=== PATIENT | female | born 1950 | race Caucasian/White ===

== ENCOUNTER 2017-08-07 03:43 | Inpatient (IN) | payer MEDICARE ==
[~2017-08-07] VITALS: Ht 165.1 cm; Wt 94.4 kg
[2017-08-07] VITALS (7 sets, daily range): BP systolic 101–120; BP diastolic 55–77; PULSE 54–75; RESP 16–18; TEMP 95.4–98.1; O2SAT 92–97
[~2017-08-07 03:43] MED LIST: ATEN1TAB74; BENI40TA30; OXYC-360; PREV30CA36; RAMI10CA; VYTO10TA32
--- NOTE | 2017-08-07 04:26 | PD ---
HPI Chief Complaint: Fall Time Seen by Provider: 04:12 Travel History International Travel<30 days: No Contact w/Intl Traveler<30days: No Traveled to known affect area: No History of Present Illness HPI Patient is a 67 year old female who presents to ER with c/o of headache and neck pain after she fell out of bed today. Reports that "i must have turned and when I did I fell out of bed." Reports that her head hit on the dresser and now she has pains to the back of her head and neck. Denies loc. Reports that she is not currently on any anticoagulants at this time. Patient with no back pain. Denies chest pain/sob. PFSH Past Medical History Medical History: Denies Significant Hx Past Surgical History Surgical History: No Previous Surgery Social History Alcohol Use: No Tobacco Use: No Substance Use: No Allergies-Medications (Allergen,Severity, Reaction): Coded Allergies: aspirin (Unverified Allergy, Mild, GASTRIC UPSET, 08/07/17) Reported Meds & Prescriptions Reported Meds & Active Scripts Active Walker with Front Wheels (Device) 1 Mis Mis Ea .ROUTE DIRECTED Review of Systems General / Constitutional: No: Fever Eyes: No: Visual changes HENT: Positive: Neck Pain, No: Headaches Cardiovascular: No: Chest Pain or Discomfort Respiratory: No: Shortness of Breath Gastrointestinal: No: Abdominal Pain Genitourinary: No: Dysuria Musculoskeletal: No: Pain Skin: No Rash Neurologic: Positive: Headache, No: Weakness Psychiatric: No: Depression Endocrine: No: Polydipsia Hematologic/Lymphatic: No: Easy Bruising Physical Exam Narrative GENERAL: NAD SKIN: Focused skin assessment warm/dry. HEAD: Atraumatic. Normocephalic. EYES: Pupils equal and round. No scleral icterus. No injection or drainage. ENT: No nasal bleeding or discharge. Mucous membranes pink and moist. NECK: Trachea midline. No JVD. Patient with c-collar in place CARDIOVASCULAR: Regular rate and rhythm. No murmur appreciated. RESPIRATORY: No accessory muscle use. Clear to auscultation. Breath sounds equal bilaterally. GASTROINTESTINAL: Abdomen soft, non-tender, nondistended. Hepatic and splenic margins not palpable. MUSCULOSKELETAL: No obvious deformities. No clubbing. No cyanosis. No edema. NEUROLOGICAL: Awake and alert. No obvious cranial nerve deficits. Motor grossly within normal limits. Normal speech. PSYCHIATRIC: Appropriate mood and affect; insight and judgment normal. Data Data Last Documented VS Vital Signs Date Time Temp Pulse Resp B/P (MAP) Pulse Ox O2 Delivery O2 Flow Rate FiO2 08/07/17 03:51 98.1 54 18 101/55 (70) [address] Brain W/O Iv Contrast(Rout) (08/07/17 04:18) Ct Cerv Spine W/O Contrast (08/07/17 04:18) Acetaminophen (Tylenol) (08/07/17 04:30) Basic Metabolic Panel (Bmp) (08/07/17 05:05) Complete Blood Count With Diff (08/07/17 05:05) Prothrombin Time / Inr (Pt) (08/07/17 05:05) Act Partial Throm Time (Ptt) (08/07/17 05:05) Iv Access Insert/Monitor (08/07/17 05:05) Ecg Monitoring (08/07/17 05:05) Oximetry (08/07/17 05:05) NPO (08/07/17 05:05) Sodium Chloride 0.9% Flush (Ns Flush) (08/07/17 05:15) Drug Screen, Random Urine (08/07/17 05:06) Consult Neurosurgery (08/07/17 ) Chest, Single Ap (08/07/17 05:24) (Hub Use Only)Inp Phy Cons/Ref (08/07/17 ) Admit Order (Ed Use Only) (08/07/17 05:29) Alcohol (Ethanol) (08/07/17 05:05) MDM Medical Decision Making Medical Screen Exam Complete: Yes Emergency Medical Condition: Yes Medical Record Reviewed: Yes Interpretation(s) Vital Signs Date Time Temp Pulse Resp B/P (MAP) Pulse Ox O2 Delivery O2 Flow Rate FiO2 08/07/17 03:51 98.1 54 18 101/55 (70) 96 Differential Diagnosis ich, cervical spine fx Narrative Course Patient was brought to ct for ct of head and neck CT of head: neg for intracranial hemorrhage CT of neck: acute nondisplaced type II odontoid fracture Patient with no neurovascular compromise at this time. Call made for admission. Consult was placed to neurosurgery Diagnosis Primary Impression: Odontoid fracture with type II morphology Qualified Codes: S12.112A - Nondisplaced type ii dens fracture, initial encounter for closed fracture Admitting Information Admitting Physician Requests: Admit Scripts Walker with Front Wheels (Walker with Front Wheels) 1 Mis Mis EA .ROUTE DIRECTED for ambulation, #1 0 Refills Prov: Elicia Fontanez MD 08/07/17 Viri Ramos DO Aug 07, 2017 04:26
[2017-08-07] MEDS ORDERED: ACETAMINOPHEN 500 MG CPLT PO ONE (04:30)
--- NOTE | 2017-08-07 04:51 | RADRPT ---
EXAM DATE/TIME: 08/07/2017 04:34 [facility] COMPARISON: No previous studies available for comparison. INDICATIONS : Trauma, fell and hit head on dresser. RADIATION DOSE: 36.30 CTDIvol (mGy) MEDICAL HISTORY : None SURGICAL HISTORY : None. ENCOUNTER: Initial ACUITY: 1 day PAIN SCALE: 10/10 LOCATION: cranial TECHNIQUE: Multiple contiguous axial images were obtained of the head. Using automated exposure control and adj ustment of the mA and/or kV according to patient size, radiation dose was kept as low as reasonably a chievable to obtain optimal diagnostic quality images. DICOM format image data is available electro nically for review and comparison. FINDINGS: CEREBRUM: The ventricles are normal for age. No evidence of midline shift, mass lesion, hemorrhage or acute in farction. No extra-axial fluid collections are seen. POSTERIOR FOSSA: The cerebellum and brainstem are intact. The 4th ventricle is midline. The cerebellopontine angle i s unremarkable. EXTRACRANIAL: The visualized portion of the orbits is intact. SKULL: The calvaria is intact. No evidence of skull fracture. CONCLUSION: Negative noncontrast head CT. Agustin Escoto MD on August 07, 2017 at 4:49 Board Certified Radiologist. This report was verified electronically.
--- NOTE | 2017-08-07 04:55 | RADRPT ---
EXAM DATE/TIME: 08/07/2017 04:34 [facility] COMPARISON: No previous studies available for comparison. INDICATIONS : Trauma, fell and hit head on dresser. RADIATION DOSE: 22.78 CTDIvol (mGy) MEDICAL HISTORY : None SURGICAL HISTORY : None. ENCOUNTER: Initial ACUITY: 1 day PAIN SCALE: 10/10 LOCATION: neck TECHNIQUE: Volumetric scanning of the cervical spine was performed. Multiplanar reconstructions in the sagittal, coronal and oblique axial planes were performed. Using automated exposure control and adjustment o f the mA and/or kV according to patient size, radiation dose was kept as low as reasonably achievable to obtain optimal diagnostic quality images. DICOM format image data is available electronically f or review and comparison. FINDINGS: There is a nondisplaced fracture of the base of the odontoid. No subluxation. C1 ring is discontinuou s posteriorly, appears developmental. No other fractures of the cervical spine are demonstrated. There is multilevel disc space narrowing w ith uncovertebral and facet osteoarthritis, severe at C5/C6 and C6-C7, moderate at C4/C5. CONCLUSION: Acute, nondisplaced type II odontoid fracture. Agustin Escoto MD on August 07, 2017 at 4:51 Board Certified Radiologist. This report was verified electronically.
[2017-08-07] MEDS ORDERED: SODIUM CHLORIDE 0.9% FLUSH 10 ML FLUSH IV FLUSH PRN ×2 (05:15→05:30)
[2017-08-07] MEDS ORDERED: SENNOSIDES 8.6 MG TAB PO PRN (05:30)
[2017-08-07] MEDS ORDERED: NALOXONE HCL 0.4 MG/ML AMP IV PUSH PRN ×2 (05:30→06:00)
[2017-08-07] MEDS ORDERED: MAGNESIUM HYDROXIDE SUSP 30 ML CUP PO PRN (05:30)
[2017-08-07] MEDS ORDERED: BISACODYL 10 MG SUPP RECTAL PRN (05:30)
[2017-08-07] MEDS ORDERED: SODIUM CHLOR 0.45% 1000 ML INJ 1,000 ML IV SCH (05:30)
[2017-08-07] MEDS ORDERED: LACTULOSE SYRUP 20 GM/30 ML CUP PO PRN (05:30)
--- NOTE | 2017-08-07 05:45 | RADRPT ---
EXAM DATE/TIME: 08/07/2017 05:33 [facility] COMPARISON: No previous studies available for comparison. INDICATIONS : Pt fell and hit head on dresser, c/o head and neck pain MEDICAL HISTORY : None. SURGICAL HISTORY : None. ENCOUNTER: Initial ACUITY: 1 day PAIN SCORE: 9/10 LOCATION: Bilateral chest FINDINGS: There is mild left base atelectasis. Right lung is clear. No fracture seen. No pleural effusion or pn eumothorax. Cardiomediastinal silhouette within normal limits. CONCLUSION: Trace left base atelectasis. Agustin Escoto MD on August 07, 2017 at 5:43 Board Certified Radiologist. This report was verified electronically.
[2017-08-07] MEDS ORDERED: MORPHINE SULFATE 4 MG/ML INJ IV PUSH PRN ×2 (06:00)
--- NOTE | 2017-08-07 06:00 | HHI.HP ---
HPI Service [facility] Primary Care Physician Collin Oh, Admission Diagnosis Type 2 Odontoid fracture Diagnoses: Travel History International Travel<30 Days: No Contact w/Intl Traveler <30 Da: No Traveled to Known Affected Are: No History of Present Illness 67-year-old female with history of hypertension, GERD, reportedly fell out of bed around 2:30 AM, hitting her left mamie on dresser. She says she was awake at the time, but misjudged the edge of the bed. She denies any recent medication changes. She reports previously feeling fine. Denies any chest pain , shortness of breath, cough, cold, constipation, diarrhea, dysuria. He history of exertional chest pain. Most recent medication change was addition of gabapentin 600 mg at night which was admitted about 6 months ago. Patient reports constant sharp posterior neck pain radiating to her right occiput. Review of Systems Except as stated in HPI: all other systems reviewed are Neg Past Family Social History Past Medical History Hypertension GERD Hyperlipidemia Polycythemia Breast cancer resection Colon cancer resection. Past Surgical History Lumpectomy for breast cancer. Partial colon resection for colon cancer. Patient received radiation, reportedly no chemotherapy. Reported Medications Reported Meds & Active Scripts Active Reported Percocet (Oxycodone/Acetaminophen) 5 Mg/325 Mg Tab Vytorin 10/20 (Ezetimibe/Simvastatin) Tab Tenormin (Atenolol) 50 Mg Tab Prevacid (Lansoprazole) 30 Mg Capcr Benicar (Olmesartan) 40 Mg Tab Altace (Ramipril) 10 Mg Cap Allergies: Coded Allergies: aspirin (Unverified Allergy, Mild, GASTRIC UPSET, 08/07/17) Family History Mother from complications from flu shot. Father from alcoholic cirrhosis. Social History Nonsmoker. Nondrinker. Denies illicit drugs. Lives with . Physical Exam Vital Signs Vital Signs Date Time Temp Pulse Resp B/P (MAP) Pulse Ox O2 Delivery O2 Flow Rate FiO2 08/07/17 03:51 98.1 54 18 101/55 (70) 96 Physical Exam GENERAL: This is a well-nourished, well-developed patient, in pain.. Alert and oriented 3. SKIN: No rashes, ecchymoses or lesions. Cool and dry. HEAD: Atraumatic. Normocephalic. No temporal or scalp tenderness. EYES: Pupils equal round and reactive. Extraocular motions intact. No scleral icterus. No injection or drainage. ENT: Nose without bleeding, purulent drainage or septal hematoma. Throat without erythema, tonsillar hypertrophy or exudate. Uvula midline. Airway patent. NECK: Trachea midline. No JVD or lymphadenopathy. Patient in cervical collar. CARDIOVASCULAR: Regular rate and rhythm without murmurs, gallops, or rubs. RESPIRATORY: Clear to auscultation. Breath sounds equal bilaterally. No wheezes , rales, or rhonchi. GASTROINTESTINAL: Abdomen soft, non-tender, nondistended. No hepato-splenomegaly , or palpable masses. No guarding. MUSCULOSKELETAL: Extremities without clubbing, cyanosis, or edema. No joint tenderness, effusion, or edema noted. No calf tenderness. Negative Homans sign bilaterally. NEUROLOGICAL: Awake and alert. Cranial nerves II through XII intact. Motor and sensory grossly within normal limits. Five out of 5 muscle strength in all muscle groups. Normal speech. Caprini VTE Risk Assessment Caprini VTE Risk Assessment: Mod/High Risk (score >= 2) Caprini Risk Assessment Model Point Value = 1 Point Value = 2 Point Value = 3 Point Value = 5 Age 41-60 Minor surgery BMI > 25 kg/m2 Swollen legs Varicose veins or History of unexplained or recurrent spontaneous Oral contraceptives or hormone replacement Sepsis (< 1 month) Serious lung disease, including pneumonia (< 1 month) Abnormal pulmonary function Acute myocardial infarction Congestive heart failure (< 1 month) History of inflammatory bowel disease Medical patient at bed rest Age 61-74 Arthroscopic surgery Major open surgery (> 45 min) Laparoscopic surgery (> 45 min) Malignancy Confined to bed (> 72 hours) Immobilizing plaster cast Central venous access Age >= 75 History of VTE Family history of VTE Factor V Leiden Prothrombin 55432A Lupus anticoagulant Anticardiolipin antibodies Elevated serum homocysteine Heparin-induced thrombocytopenia Other congenital or acquired thrombophilia Stroke (< 1 month) Elective arthroplasty Hip, pelvis, or leg fracture Acute spinal cord injury (< 1 month) Prophylaxis Regimen Total Risk Factor Score Risk Level Prophylaxis Regimen 0-1 Low Early ambulation 2 Moderate Order ONE of the following: *Sequential Compression Device (SCD) *Heparin 5000 units SQ BID 3-4 Higher Order ONE of the following medications: *Heparin 5000 units SQ TID *Enoxaparin/Lovenox 40 mg SQ daily (WT < 150 kg, CrCl > 30 mL/min) *Enoxaparin/Lovenox 30 mg SQ daily (WT < 150 kg, CrCl > 10-29 mL/min) *Enoxaparin/Lovenox 30 mg SQ BID (WT < 150 kg, CrCl > 30 mL/min) AND/OR *Sequential Compression Device (SCD) 5 or more Highest Order ONE of the following medications: *Heparin 5000 units SQ TID (Preferred with Epidurals) *Enoxaparin/Lovenox 40 mg SQ daily (WT < 150 kg, CrCl > 30 mL/min) *Enoxaparin/Lovenox 30 mg SQ daily (WT < 150 kg, CrCl > 10-29 mL/min) *Enoxaparin/Lovenox 30 mg SQ BID (WT < 150 kg, CrCl > 30 mL/min) AND *Sequential Compression Device (SCD) Assessment and Plan Assessment and Plan //Acute nondisplaced type II odontoid fracture -From fall out of bed. She was alert at the time of fall, reported to have missed judged the edge of bed. Could be related to gabapentin. She denies illicit drugs. Drug screen is pending. -CT cervical spine as above. -Narcotics for pain control -Consult neurosurgery. Pending. //Hypertension. Chronic. - Blood pressure relatively low 101/55 on admission. -Nursing to verify home medications. /Hyperlipidemia. Chronic. Pending verification of home medications. //GERD. Chronic. Continue on PPI. //Peripheral neuropathy -Patient takes gabapentin 600 mg by mouth nightly. -Decrease dose to 300 mg at bedtime while in the hospital. //History of polycythemia. CBC ordered and pending. //Prophylaxis. SCDs. antiCoagulation As per surgical service. Discussed Condition With Patient, ED physician, at bedside. Physician Certification 2 Midnight Certification Type: Admission for Inpatient Services Order for Inpatient Services The services are ordered in accordance with Medicare regulations or non- Medicare payer requirements, as applicable. In the case of services not specified as inpatient-only, they are appropriately provided as inpatient services in accordance with the 2-midnight benchmark. Estimated LOS (days): 2 days is the estimated time the patient will need to remain in the hospital, assuming treatment plan goals are met and no additional complications. Post-Hospital Plan: Not yet determined Hector Figueroa MD Aug 07, 2017 06:00
[2017-08-07 06:23] LABS: AUTOMATED NEUTROPHIL # 5.7 TH/MM3 (1.8-7.7); BASOPHIL % 0.4 % (0.0-2.0); EOSINOPHIL % 0.6 % (0.0-4.0); HEMATOCRIT 48.8 % (35.0-46.0); HEMOGLOBIN 16.9 GM/DL (11.6-15.3); LYMPH % 22.7 % (9.0-44.0); LYMPHOCYTE # 1.9 TH/MM3 (1.0-4.8); MEAN CELL VOLUME 89.3 FL (80.0-100.0); MEAN CORPUSCULAR HEMOGLOBIN 30.8 PG (27.0-34.0); MEAN CORPUSCULAR HGB CONC 34.5 % (32.0-36.0); MEAN PLATELET VOLUME 10.3 FL (7.0-11.0); MONO % 6.5 % (0.0-8.0); MONOCYTE # 0.5 TH/MM3 (0-0.9); NEUT % 69.8 % (16.0-70.0); PLATELET COUNT 153 TH/MM3 (150-450); RED BLOOD COUNT 5.46 MIL/MM3 (4.00-5.30); RED CELL DISTRIBUTION WIDTH 13.9 % (11.6-17.2); WHITE BLOOD COUNT 8.2 TH/MM3 (4.0-11.0)
[2017-08-07] MEDS: MORPHINE SULFATE 4 MG/ML INJ IV PUSH PRN ×4 (06:58→23:35)
[2017-08-07 07:10] LABS: BLOOD UREA NITROGEN 23 MG/DL (7-18); CALCIUM 9.8 MG/DL (8.5-10.1); CHLORIDE 98 MEQ/L (98-107); GLOMERULAR FILTRATION RATE 72 ML/MIN (>89); GLUCOSE,RANDOM 133 MG/DL (74-106); SODIUM (NA) 136 MEQ/L (136-145)
[2017-08-07 07:20] LABS: PROTHROMBIN TIME - PATIENT 10.9 SEC (9.8-11.6)
[2017-08-07] MEDS: POTASSIUM CHLOR 10 MEQ PREMIX 100 ML IV SCH ×3 (08:29→11:28)
[2017-08-07] MEDS: SODIUM CHLORIDE 0.9% FLUSH 10 ML FLUSH IV FLUSH SCH ×2 (08:30→19:33)
[2017-08-07] MEDS: PANTOPRAZOLE SOD 20 MG DELAYED RELEASE TAB PO SCH (08:30)
[2017-08-07] MEDS: D5-NS + KCL 20 MEQ INJ 1,000 ML IV SCH ×2 (08:30→18:01)
--- NOTE | 2017-08-07 13:34 | PD.CONS ---
History of Present Illness Service Neurosurgery Consult Requested By Medicine service Reason for Consult C2 fracture Primary Care Physician Collin Oh, Diagnoses: History of Present Illness The patient is a pleasant 67-year-old female who states that she got out of bed early this morning, and fell. When asked why she fell, she states that she thinks that she passed out. No complaint chest pain or shortness of breath. No significant headache. No dizziness or vertigo. No blurred vision or diplopia. Denies any seizure activity. She complains of mild to moderate neck pain. No pain weakness numbness paresthesias in the extremities or loss of bowel or bladder function. She does complain of pain radiating in back of the right ear up to the right posterior occipital region. Review of Systems Constitutional: DENIES: Fatigue, Fever Eyes: DENIES: Blurred vision, Diplopia Ears, nose, mouth, throat: DENIES: Hearing loss, Vertigo Respiratory: DENIES: Shortness of breath Cardiovascular: DENIES: Chest pain, Palpitations Gastrointestinal: DENIES: Abdominal pain, Nausea, Vomiting Musculoskeletal: COMPLAINS OF: Muscle aches, Neck pain, DENIES: Joint pain, Back pain Hematologic/lymphatic: DENIES: Bruising Neurologic: COMPLAINS OF: Headache, DENIES: Abnormal gait Psychiatric: DENIES: Confusion Past Family Social History Allergies: Coded Allergies: aspirin (Unverified Allergy, Mild, GASTRIC UPSET, 08/07/17) Past Medical History Hypertension Hyperlipidemia History of breast and colon cancer GERD Past Surgical History Breast cancer resection Colon cancer resection Reported Medications Reported Meds & Active Scripts Active Active Prescriptions or Reported Medications Unobtainable Family History No history of cardiopulmonary disease, diabetes in the family Social History Does not smoke cigarettes or drink alcohol. Physical Exam Vital Signs Vital Signs Date Time Temp Pulse Resp B/P (MAP) Pulse Ox O2 Delivery O2 Flow Rate FiO2 08/07/17 12:00 96.4 68 16 105/63 (77) 92 08/07/17 08:00 95.6 66 16 112/71 (85) 92 08/07/17 06:37 08/07/17 05:58 54 18 102/56 (71) 94 Room Air 08/07/17 05:51 18 96 Room Air 08/07/17 03:51 98.1 54 18 101/55 (70) 96 Physical Exam GENERAL: This is a well-nourished, well-developed patient, no apparent distress. SKIN: No abrasions, contusion, rash noted. Skin warm and dry. HEAD: Atraumatic. Normocephalic. Mild tenderness left frontotemporal region EYES: Sclerae are clear and nonicteric ENT: No facial edema or ecchymosis. No periorbital edema. No CSF otorrhea or rhinorrhea. No palpable facial fracture or deformity. NECK: Trachea midline. Mild upper cervical spine tenderness. Mild tenderness right posterior auricular region CARDIOVASCULAR: Regular rate and rhythm without murmurs, gallops, or rubs. RESPIRATORY: Clear to auscultation. Breath sounds equal bilaterally. No wheezes , rales, or rhonchi. GASTROINTESTINAL: Abdomen soft, non-tender, nondistended. No hepato-splenomegaly , or palpable masses. No guarding. MUSCULOSKELETAL: Extremities without cyanosis, or edema. No joint tenderness, or edema noted. No calf tenderness. Dorsalis pedis pulses 2+ bilateral NEUROLOGICAL: Awake and alert Oriented X 3 Speech is clear Conversant and appropriate Follow simple commands well Answers questions appropriately Reasonable judgment and insight Recent and remote memory are intact No evidence of anxiety or depression Pupils are equal and reactive to accommodation. Extra-ocular movements, visual sinclair to confrontation, facial sensorimotor, tongue, palate, sternocleidomastoid testing, hearing to finger rub testing, and bilateral shoulder shrug are all intact. Sensation is intact to light touch in all extremities Strength normal major flexion and extension groups all extremities Austyn's absent bilaterally No ankle clonus Plantar responses absent bilateral Fine motor movements intact upper extremities Laboratory Laboratory Tests Test 08/07/17 05:55 White Blood Count 8.2 Red Blood Count 5.46 Hemoglobin 16.9 Hematocrit 48.8 Mean Corpuscular Volume 89.3 Mean Corpuscular Hemoglobin 30.8 Mean Corpuscular Hemoglobin Concent 34.5 Red Cell Distribution Width 13.9 Platelet Count 153 Mean Platelet Volume 10.3 Neutrophils (%) (Auto) 69.8 Lymphocytes (%) (Auto) 22.7 Monocytes (%) (Auto) 6.5 Eosinophils (%) (Auto) 0.6 Basophils (%) (Auto) 0.4 Neutrophils # (Auto) 5.7 Lymphocytes # (Auto) 1.9 Monocytes # (Auto) 0.5 Eosinophils # (Auto) 0.0 Basophils # (Auto) 0.0 CBC Comment DIFF FINAL Differential Comment Prothrombin Time 10.9 Prothromb Time International Ratio 1.0 Activated Partial Thromboplast Time 26.8 Blood Urea Nitrogen 23 Creatinine 0.80 Random Glucose 133 Calcium Level 9.8 Sodium Level 136 Potassium Level 2.6 Chloride Level 98 Carbon Dioxide Level 29.0 Anion Gap 9 Estimat Glomerular Filtration Rate 72 Ethyl Alcohol Level LESS THAN 3 Result Diagram: 08/07/17 0555 08/07/17 0555 Imaging 08/07/17 CT scan of the head and cervical spine images have been reviewed. The study reveals a acute appearing nondisplaced type II odontoid fracture. There appears to be a spontaneous C3-4 fusion. There is a small amount of osteophyte formation along the left C1-2 lateral mass , possible early stages of spontaneous fusion. Chest X-Ray 08/07/17 0524 Signed Impressions: Service Date/Time: Monday, August 07, 2017 05:33 - CONCLUSION: Trace left base atelectasis. Agsutin Escoto MD Head CT 08/07/17 0418 Signed Impressions: Service Date/Time: Monday, August 07, 2017 04:34 - CONCLUSION: Negative noncontrast head CT. Agustin Escoto MD Cervical Spine CT 08/07/17 0418 Signed Impressions: Service Date/Time: Monday, August 07, 2017 04:34 - CONCLUSION: Acute, nondisplaced type II odontoid fracture. Agustin Escoto MD Assessment and Plan Assessment and Plan Impression: 1. Nondisplaced type II odontoid fracture. No significant distraction or subluxation. There is a small amount of osteophyte formation lateral to the left C1-2 lateral mass which may indicate relative stability at the C1-2 level. Spontaneous C2-3 fusion Plan: Findings were discussed with the patient. Treatment options including external [place] brace, halo brace, or some surgical intervention for C2 odontoid screw fixation have all been discussed along with prognosis, pros and cons of each. Since the bone fragments are well apposed, with some osteophyte formation along the lateral left C1-2 lateral mass indicating potential for greater stability, it is recommended she continue initial conservative treatment with a [place] J cervical collar. Follow-up cervical spine x-ray will be accomplished in approximately 1 week to ensure continued stability and proper alignment. As long as he serial x-rays reveal proper healing of the fracture site and conservative treatment will be continued. If there is evidence of subluxation and nonunion, then odontoid screw placement can be considered until approximately 1 month following the initial injury. I have explained all the above in detail to the patient. She appears to understand all the above and agrees with this plan. It is questionable whether she tripped and fell or had a syncopal type episode earlier this morning. The need for significant workup will be deferred to medicine service. She otherwise will mobilize out of bed with the [place] collar and as long as she is ambulating well independently, may discharge home with neurosurgery follow- up in approximately 1 week with AP open mouth odontoid view and lateral cervical spine x-ray. Serjio Jauregui MD Aug 07, 2017 13:34
[2017-08-07] MEDS ORDERED: WALKER WHEELS/F1 MIS (16:20)
--- NOTE | 2017-08-07 16:22 | HHI.FF ---
Face to Face Verification Diagnosis: (1) Odontoid fracture with type II morphology Physical Therapy Order: Evaluate and Treat, Improve ambulation, Strength and gait training I have seen patient Lindsay Garcia on 08/07/17. My clinical findings support the need for the requested home health care services because: High risk of falls I certify that my clinical findings support that this patient is homebound because: Unsteady gait/balance Elicia Fontanez MD Aug 07, 2017 16:22
[2017-08-07] MEDS: GABAPENTIN 300 MG CAP PO SCH (19:33)
[2017-08-08] VITALS (7 sets, daily range): BP systolic 121–141; BP diastolic 69–83; PULSE 61–74; RESP 17–18; TEMP 95.8–96.7; O2SAT 95–97
[2017-08-08] MEDS: MORPHINE SULFATE 4 MG/ML INJ IV PUSH PRN (04:43)
[2017-08-08] MEDS: D5-NS + KCL 20 MEQ INJ 1,000 ML IV SCH (04:43)
[2017-08-08 04:57] LABS: AUTOMATED NEUTROPHIL # 4.4 TH/MM3 (1.8-7.7); BASOPHIL % 0.4 % (0.0-2.0); EOSINOPHIL # 0.1 TH/MM3 (0-0.4); EOSINOPHIL % 1.6 % (0.0-4.0); HEMATOCRIT 41.5 % (35.0-46.0); HEMOGLOBIN 14.2 GM/DL (11.6-15.3); LYMPH % 33.3 % (9.0-44.0); LYMPHOCYTE # 2.6 TH/MM3 (1.0-4.8); MEAN CELL VOLUME 90.4 FL (80.0-100.0); MEAN CORPUSCULAR HEMOGLOBIN 30.9 PG (27.0-34.0); MEAN CORPUSCULAR HGB CONC 34.2 % (32.0-36.0); MEAN PLATELET VOLUME 10.4 FL (7.0-11.0); MONO % 7.2 % (0.0-8.0); MONOCYTE # 0.6 TH/MM3 (0-0.9); NEUT % 57.5 % (16.0-70.0); PLATELET COUNT 143 TH/MM3 (150-450); RED BLOOD COUNT 4.59 MIL/MM3 (4.00-5.30); RED CELL DISTRIBUTION WIDTH 13.9 % (11.6-17.2); WHITE BLOOD COUNT 7.7 TH/MM3 (4.0-11.0)
[2017-08-08 05:37] LABS: ALBUMIN 3.1 GM/DL (3.4-5.0); ALKALINE PHOSPHATASE 64 U/L (45-117); ALT (GPT) 24 U/L (10-53); AST (GOT) 19 U/L (15-37); BICARBONATE 27.5 MEQ/L (21.0-32.0); BLOOD UREA NITROGEN 13 MG/DL (7-18); CHLORIDE 102 MEQ/L (98-107); CREATININE 0.74 MG/DL (0.50-1.00); GLOMERULAR FILTRATION RATE 78 ML/MIN (>89); GLUCOSE,RANDOM 131 MG/DL (74-106); SODIUM (NA) 138 MEQ/L (136-145); TOTAL BILIRUBIN ADULT 0.5 MG/DL (0.2-1.0); TOTAL PROTEIN 5.7 GM/DL (6.4-8.2)
--- NOTE | 2017-08-08 07:47 | HHI.PR ---
Subjective Remarks awake and alert, some pain on the back of the neck no tingling or numbness sound slike a syncopal episode denies any nausea, headache, dizziness or palpitations prior to episode Objective Vitals Vital Signs Date Time Temp Pulse Resp B/P (MAP) Pulse Ox O2 Delivery O2 Flow Rate FiO2 08/08/17 07:29 96.7 61 18 128/69 (88) 96 08/08/17 04:14 96.7 64 17 123/73 (90) 97 08/08/17 00:30 96.2 62 17 121/76 (91) 97 08/07/17 20:05 96.0 62 17 120/77 (91) 97 08/07/17 16:00 95.4 75 16 101/69 (80) 94 08/07/17 14:52 16 08/07/17 12:00 96.4 68 16 105/63 (77) 92 08/07/17 08:00 95.6 66 16 112/71 (85) 92 I/O 08/07/17 08/07/17 08/07/17 08/08/17 08/08/17 08/08/17 07:00 15:00 23:00 07:00 15:00 23:00 Intake Total 240 ml 240 ml 1350 ml Balance 240 ml 240 ml 1350 ml Intake Oral 240 ml 240 ml 360 ml IV Total 990 ml # Voids 1 1 1 # Bowel Movements 0 0 Result Diagram: 08/08/17 0429 08/08/17 0429 Imaging Last Impressions Chest X-Ray 08/07/17 0524 Signed Impressions: Service Date/Time: Monday, August 07, 2017 05:33 - CONCLUSION: Trace left base atelectasis. Agustin Escoto MD Head CT 08/07/17 0418 Signed Impressions: Service Date/Time: Monday, August 07, 2017 04:34 - CONCLUSION: Negative noncontrast head CT. Agustin Escoto MD Cervical Spine CT 08/07/178 Signed Impressions: Service Date/Time: Monday, August 07, 2017 04:34 - CONCLUSION: Acute, nondisplaced type II odontoid fracture. Agustin Escoto MD Objective Remarks awake and alert, oriented x 3 anicteric pupils equally reactive to light no facial asymmetry, tongue midline, good gag neck collar in place lungs no rales regular rhythm, no murmur abdomen soft, nontender extremities no edema grossly sensory no deficits, motor equal on all extremities A/P Assessment and Plan 67 years old female S/P fall Syncopal episode with odontoid fracture -Neurosurgery ff - PT consult- ambulation - get carotid US and 2 d echo, Holter monitoring - check orthostatics vital signs - percocet prn for pain Hypokalemia- replace. and ff. Check TSH History of Hypertension History of "palpitations and rapid heart beat" - and was placed on Tenormin by her MD- but states not taking it - although this time- patient denies any feeling of palpitations - on med list- on Benicar and Altace- swears she is not taking - get 24 hour holter - get some records from her PCP GERD on PPI PT - increase activity History of polycythemia/Brest cancer on review of old records -recheck CBC. OP ff up UP and ambulating- PT- Out of bed tid CM consult for home [facility] referral and DME reviewed med list with her on record- swears just takes Ibuprofen and Atenolol and Prevacid - from office- Allopurinol 300 mg daily, Atenolol 50 mg daily, Atorvastatin 20 mg daily, Losartan/HCTZ 100/25 daily. No ASA + allergy Elicia Fontanez MD Aug 08, 2017 07:47
[2017-08-08] MEDS ORDERED: oxyCODONE/ACETAMINOPHEN 5 MG/325 MG TAB PO PRN (08:15)
[2017-08-08] MEDS: POTASSIUM CHLOR 20 MEQ PREMIX 100 ML IV SCH ×2 (08:57→10:00)
[2017-08-08] MEDS: PANTOPRAZOLE SOD 20 MG DELAYED RELEASE TAB PO SCH (08:57)
[2017-08-08] MEDS: SODIUM CHLORIDE 0.9% FLUSH 10 ML FLUSH IV FLUSH SCH ×2 (08:57→21:02)
--- NOTE | 2017-08-08 09:41 | RADRPT ---
EXAM DATE/TIME: 08/08/2017 07:53 [place] COMPARISON: No previous studies available for comparison. INDICATIONS : Syncope. MEDICAL HISTORY : Hypertension. Carcinoma, colon. Carcinoma, breast. GERD. Hyperlipidemia. Heart Palpitations. Sleep Ap tammy. Gout. Radiation Therapy. Measels. SURGICAL HISTORY : Colon resection. Left breast lumpectomy. Eye lift. ENCOUNTER: Initial ACUITY: 1 day PAIN SCORE: 0/10 LOCATION: Right neck PEAK SYSTOLIC VELOCITIES (cm/sec): ICA/CCA RATIO: Right: 1.2 Left: 0.8 ICA: Right: 72 Left: 64 CCA: Right: 58 Left: 75 ECA: Right: 56 Left: 94 VERTEBRAL: Right: 31 antegrade Left: 36 antegrade Elevated flow velocities and ICA/CCA ratios have been found to correlate with increased degrees of vessel stenosis, calculated as percentage of diameter relative to a normal segment of distal ICA/CCA FINDINGS: RIGHT CAROTID: Mild plaque in the carotid bulb. No significant stenosis is visualized. The waveforms are within nor mal limits. LEFT CAROTID: No significant stenosis is visualized. The waveforms are within normal limits. VERTEBRAL ARTERIES: Antegrade flow is seen in both vertebral arteries. MISCELLANEOUS: None. CONCLUSION: 1. Mild right carotid plaque without significant flow-limiting stenosis. 2. No flow-limiting stenosis of the left carotid artery. 3. Antegrade flow in the vertebral arteries. Suhail Garcia MD on August 08, 2017 at 9:37 Board Certified Radiologist. This report was verified electronically.
[2017-08-08] MEDS ORDERED: ALLO300T2 PO (10:28)
[2017-08-08] MEDS ORDERED: LATA0.002 EACH EYE (10:28)
[2017-08-08] MEDS ORDERED: ATOR20TA15 PO (10:28)
[2017-08-08] MEDS ORDERED: LOSA100T3 PO (10:28)
[2017-08-08] MEDS ORDERED: GABA600T PO (10:28)
[2017-08-08] MEDS ORDERED: METO25TA6 PO (10:41)
[2017-08-08] MEDS: ONDANSETRON HCL 4 MG/2 ML VIAL IVP PRN ×2 (11:14→16:47)
--- NOTE | 2017-08-08 11:57 | HHI.NSPN ---
History Chief Complaint: Right arm pain Interval History 08/07: The patient is a pleasant 67-year-old female who states that she got out of bed early this morning, and fell. When asked why she fell, she states that she thinks that she passed out. No complaint chest pain or shortness of breath. No significant headache. No dizziness or vertigo. No blurred vision or diplopia. Denies any seizure activity. She complains of mild to moderate neck pain. No pain weakness numbness paresthesias in the extremities or loss of bowel or bladder function. She does complain of pain radiating in back of the right ear up to the right posterior occipital region. 08/08: The patient is seen in rounds with Dr Jauregui this morning. She is in bed and complains of pain to the right arm. She does have potassium chloride infusing. She is in the [facility] cervical collar and says she does have some neck pain. System Review Comments Musculoskeletal: Right arm pain. Some neck pain. The undersigned acts as a scribe for the remainder of this note. Exam Results 08/06/17 08/06/17 08/07/17 08/07/17 08/08/17 08/08/17 06:00 18:00 06:00 18:00 06:00 18:00 Intake Total 240 ml 1230 ml 360 ml Balance 240 ml 1230 ml 360 ml Intake Oral 240 ml 240 ml 360 ml IV Total 990 ml # Voids 1 1 1 # Bowel Movements 0 0 Vital Signs Date Time Temp Pulse Resp B/P (MAP) Pulse Ox O2 Delivery O2 Flow Rate FiO2 08/08/17 11:44 96.4 65 18 125/71 (89) 95 08/08/17 08:30 68 141/76 (97) 133/69 (90) 08/08/17 07:29 96.7 61 18 128/69 (88) 96 08/08/17 04:14 96.7 64 17 123/73 (90) 97 08/08/17 00:30 96.2 62 17 121/76 (91) 97 08/07/17 20:05 96.0 62 17 120/77 (91) 97 08/07/17 16:00 95.4 75 16 101/69 (80) 94 08/07/17 14:52 16 08/07/17 12:00 96.4 68 16 105/63 (77) 92 08/07/17 08:00 95.6 66 16 112/71 (85) 92 08/07/17 06:37 08/07/17 05:58 54 18 102/56 (71) 94 Room Air 08/07/17 05:51 18 96 Room Air 08/07/17 03:51 98.1 54 18 101/55 (70) 96 Physical Examination NECK: In [place] J cervical collar. MUSCULOSKELETAL: Right biceps soft but TTP, no pain to the triceps or below the elbow. HAMMER. NEUROLOGICAL: Sensory and muscle strength intact to BUE. Lab, Micro, Other Results Recent Impressions Carotid Artery Ultrasound 08/08/17 0000 Signed Impressions: Service Date/Time: Tuesday, August 08, 2017 07:53 - CONCLUSION: 1. Mild right carotid plaque without significant flow-limiting stenosis. 2. No flow-limiting stenosis of the left carotid artery. 3. Antegrade flow in the vertebral arteries. Suhail Garcia MD Chest X-Ray 08/07/17 0524 Signed Impressions: Service Date/Time: Monday, August 07, 2017 05:33 - CONCLUSION: Trace left base atelectasis. Agustin Escoto MD Head CT 08/07/17 0418 Signed Impressions: Service Date/Time: Monday, August 07, 2017 04:34 - CONCLUSION: Negative noncontrast head CT. Agustin Escoto MD Cervical Spine CT 08/07/17 0418 Signed Impressions: Service Date/Time: Monday, August 07, 2017 04:34 - CONCLUSION: Acute, nondisplaced type II odontoid fracture. Agustin Escoto MD Laboratory Tests Test 08/07/17 05:55 08/08/17 04:29 White Blood Count 8.2 TH/MM3 7.7 TH/MM3 Red Blood Count 5.46 MIL/MM3 4.59 MIL/MM3 Hemoglobin 16.9 GM/DL 14.2 GM/DL Hematocrit 48.8 % 41.5 % Mean Corpuscular Volume 89.3 FL 90.4 FL Mean Corpuscular Hemoglobin 30.8 PG 30.9 PG Mean Corpuscular Hemoglobin Concent 34.5 % 34.2 % Red Cell Distribution Width 13.9 % 13.9 % Platelet Count 153 TH/MM3 143 TH/MM3 Mean Platelet Volume 10.3 FL 10.4 FL Neutrophils (%) (Auto) 69.8 % 57.5 % Lymphocytes (%) (Auto) 22.7 % 33.3 % Monocytes (%) (Auto) 6.5 % 7.2 % Eosinophils (%) (Auto) 0.6 % 1.6 % Basophils (%) (Auto) 0.4 % 0.4 % Neutrophils # (Auto) 5.7 TH/MM3 4.4 TH/MM3 Lymphocytes # (Auto) 1.9 TH/MM3 2.6 TH/MM3 Monocytes # (Auto) 0.5 TH/MM3 0.6 TH/MM3 Eosinophils # (Auto) 0.0 TH/MM3 0.1 TH/MM3 Basophils # (Auto) 0.0 TH/MM3 0.0 TH/MM3 CBC Comment DIFF FINAL DIFF FINAL Differential Comment Prothrombin Time 10.9 SEC Prothromb Time International Ratio 1.0 RATIO Activated Partial Thromboplast Time 26.8 SEC Blood Urea Nitrogen 23 MG/DL 13 MG/DL Creatinine 0.80 MG/DL 0.74 MG/DL Random Glucose 133 MG/DL 131 MG/DL Calcium Level 9.8 MG/DL 8.0 MG/DL Sodium Level 136 MEQ/L 138 MEQ/L Potassium Level 2.6 MEQ/L 3.0 MEQ/L Chloride Level 98 MEQ/L 102 MEQ/L Carbon Dioxide Level 29.0 MEQ/L 27.5 MEQ/L Anion Gap 9 MEQ/L 9 MEQ/L Estimat Glomerular Filtration Rate 72 ML/MIN 78 ML/MIN Ethyl Alcohol Level LESS THAN 3 MG/DL Total Protein 5.7 GM/DL Albumin 3.1 GM/DL Alkaline Phosphatase 64 U/L Aspartate Amino Transf (AST/SGOT) 19 U/L Alanine Aminotransferase (ALT/SGPT) 24 U/L Total Bilirubin 0.5 MG/DL Thyroid Stimulating Hormone 3rd Gen 2.200 uIU/ML Medical Decision Making Impression and Plan The Impression & Plan are carried forward from the note of . Impression: 1. Nondisplaced type II odontoid fracture. No significant distraction or subluxation. There is a small amount of osteophyte formation lateral to the left C1-2 lateral mass which may indicate relative stability at the C1-2 level. Spontaneous C2-3 fusion Plan: Findings were discussed with the patient. Treatment options including external [place] brace, halo brace, or some surgical intervention for C2 odontoid screw fixation have all been discussed along with prognosis, pros and cons of each. Since the bone fragments are well apposed, with some osteophyte formation along the lateral left C1-2 lateral mass indicating potential for greater stability, it is recommended she continue initial conservative treatment with a [place] J cervical collar. Follow-up cervical spine x-ray will be accomplished in approximately 1 week to ensure continued stability and proper alignment. As long as he serial x-rays reveal proper healing of the fracture site and conservative treatment will be continued. If there is evidence of subluxation and nonunion, then odontoid screw placement can be considered until approximately 1 month following the initial injury. I have explained all the above in detail to the patient. She appears to understand all the above and agrees with this plan. It is questionable whether she tripped and fell or had a syncopal type episode earlier this morning. The need for significant workup will be deferred to medicine service. She otherwise will mobilize out of bed with the [place] collar and as long as she is ambulating well independently, may discharge home with neurosurgery follow- up in approximately 1 week with AP open mouth odontoid view and lateral cervical spine x-ray. Jayce Garces Aug 08, 2017 11:56
[2017-08-08] MEDS ORDERED: POTASSIUM CHLORIDE 25 MEQ EFFERVESCENT TAB PO ONE (15:15)
[2017-08-08] MEDS ORDERED: POTASSIUM CHLOR 10 MEQ PREMIX 100 ML IV ONE (16:00)
[2017-08-08] MEDS ORDERED: POTASSIUM CHLORIDE 10 MEQ CONTROLLED RELEASE TAB PO ONE (18:00)
[2017-08-08] MEDS ORDERED: METOCLOPRAMIDE HCL 10 MG/2 ML VIAL IV PRN (19:45)
[2017-08-08] MEDS: GABAPENTIN 300 MG CAP PO SCH (21:02)
[2017-08-09 01:07] VITALS: BP_SYST 104; BP_SYST 120; BP_SYST 134; BP_DIAS 74; BP_DIAS 77; BP_DIAS 78; PULSE 95; RESP 18; TEMP 96.5; O2SAT 94
[2017-08-09 04:37] VITALS: BP 139/83; PULSE 70; RESP 18; TEMP 96.9; O2SAT 94
[2017-08-09 07:14] LABS: CALCIUM 8.6 MG/DL (8.5-10.1); CREATININE 0.67 MG/DL (0.50-1.00)
[2017-08-09] MEDS: PANTOPRAZOLE SOD 20 MG DELAYED RELEASE TAB PO SCH (07:42)
[2017-08-09] MEDS: SODIUM CHLORIDE 0.9% FLUSH 10 ML FLUSH IV FLUSH SCH (07:43)
[2017-08-09 08:00] VITALS: BP 131/82; PULSE 68; RESP 18; TEMP 96.5; O2SAT 91
--- NOTE | 2017-08-09 08:09 | HHI.PR ---
Subjective Remarks no complainsn of neck pain, or tingling or numbness states she up and walked around on her own last night Objective Vitals Vital Signs Date Time Temp Pulse Resp B/P (MAP) Pulse Ox O2 Delivery O2 Flow Rate FiO2 08/09/17 08:00 96.5 68 18 131/82 (98) 91 08/09/17 04:37 96.9 70 18 139/83 (101) 94 08/09/17 01:07 96.5 95 18 104/77 (86) 94 120/74 (89) 134/78 (96) 08/08/17 20:27 95.8 74 18 133/81 (98) 08/08/17 16:00 96.2 71 17 136/83 (100) 96 08/08/17 11:44 96.4 65 18 125/71 (89) 95 08/08/17 08:30 68 141/76 (97) 133/69 (90) I/O 08/08/17 08/08/17 08/08/17 08/09/17 08/09/17 08/09/17 07:00 15:00 23:00 07:00 15:00 23:00 Intake Total 1350 ml 830 ml 100 ml Balance 1350 ml 830 ml 100 ml Intake Oral 360 ml 600 ml IV Total 990 ml 230 ml 100 ml # Voids 1 3 # Bowel Movements 0 1 Result Diagram: 08/08/17 0429 08/09/17 0537 Imaging Last Impressions Carotid Artery Ultrasound 08/08/17 0000 Signed Impressions: Service Date/Time: Tuesday, August 08, 2017 07:53 - CONCLUSION: 1. Mild right carotid plaque without significant flow-limiting stenosis. 2. No flow-limiting stenosis of the left carotid artery. 3. Antegrade flow in the vertebral arteries. Suhail Garcia MD Chest X-Ray 08/07/17 0524 Signed Impressions: Service Date/Time: Monday, August 07, 2017 05:33 - CONCLUSION: Trace left base atelectasis. Agustin Escoto MD Head CT 08/07/17 0418 Signed Impressions: Service Date/Time: Monday, August 07, 2017 04:34 - CONCLUSION: Negative noncontrast head CT. Agustin Escoto MD Cervical Spine CT 08/07/17 0418 Signed Impressions: Service Date/Time: Monday, August 07, 2017 04:34 - CONCLUSION: Acute, nondisplaced type II odontoid fracture. Agustin Escoto MD Objective Remarks awake and alert, oriented x 3 anicteric pupils equally reactive to light no facial asymmetry, tongue midline, good gag neck collar in place lungs no rales regular rhythm, no murmur abdomen soft, nontender extremities no edema grossly sensory no deficits, motor equal on all extremities BP supine 130/80 BP standing 130/72 A/P Assessment and Plan 67 years old female S/P fall ? Syncopal episode with odontoid fracture -Neurosurgery ff - PT ff- ambulate - walker - get carotid US - negative and 2 d echo- will ff up - wet reading negative , Holter monitoring- holter shows occasional ectopic beats - check orthostatics vital signs- repeat negative - percocet prn for pain Hypokalemia- - corrected. TSH normal History of Hypertension History of "palpitations and rapid heart beat" - and was placed on Tenormin by her MD- advised her to take this - although this time- patient denies any feeling of palpitations - on med list- on Benicar and Altace- swears she is not taking GERD on PPI PT - increase activity History of polycythemia/Brest cancer on review of old records -recheck CBC. OP ff up UP and ambulating- PT- Out of bed tid CM consult for home health referral- Narcisa will start seeing her tomorrow DME- delievered to room reviewed med list - advised her to continue BB. DC Losartan and HCTZ FF up with PCP and Dr. Jauregui as OP Elicia Fontanez MD Aug 09, 2017 08:09
--- NOTE | 2017-08-09 08:13 | HHI.FF ---
Face to Face Verification Diagnosis: (1) Odontoid fracture with type II morphology (2) Hypokalemia Physical Therapy Order: Evaluate and Treat, Improve ambulation Home Health Nursing Order: Signs/symptoms of disease process Medication education-adverse effect Nursing assessment with vital signs I have seen patient Lindsay Garcia on 08/09/17. My clinical findings support the need for the requested home health care services because: Ltd mobility - disease progression Deconditioned w/ increased weakness High risk of falls I certify that my clinical findings support that this patient is homebound because: Unsteady gait/balance Elicia Fontanez MD Aug 09, 2017 08:13
[2017-08-09] MEDS ORDERED: POTASSIUM CHLORIDE 20 MEQ CONTROLLED RELEASE TAB PO SCH (09:00)
[2017-08-09 11:49] VITALS: BP_SYST 103; BP_SYST 136; BP_DIAS 57; BP_DIAS 80; PULSE 56; PULSE 71; RESP 18; TEMP 96.2; TEMP 97.3; O2SAT 95; O2SAT 96
[2017-08-09] MEDS ORDERED: POTA20TA5 PO (15:40)
--- NOTE | 2017-08-09 15:42 | HHI.DS ---
Discharge Summary Admission Date Aug 07, 2017 at 05:31 Discharge Date: Aug 09, 2017 Admitting Diagnosis Type 2 Odontoid fracture (1) Odontoid fracture ICD Code: S12.100A - Unspecified displaced fracture of second cervical vertebra , initial encounter for closed fracture Diagnosis: Principal (2) Hypokalemia ICD Code: E87.6 - Hypokalemia Diagnosis: Secondary Procedures none Brief History - From Admission 67-year-old female with history of hypertension, GERD, reportedly fell out of bed around 2:30 AM, hitting her left mamie on dresser. She says she was awake at the time, but misjudged the edge of the bed. She denies any recent medication changes. She reports previously feeling fine. Denies any chest pain , shortness of breath, cough, cold, constipation, diarrhea, dysuria. He history of exertional chest pain. Most recent medication change was addition of gabapentin 600 mg at night which was admitted about 6 months ago. Patient reports constant sharp posterior neck pain radiating to her right occiput. CBC/BMP: 08/08/17 0429 08/09/17 0537 Significant Findings Laboratory Tests Test 08/07/17 05:55 08/08/17 04:29 08/09/17 05:37 Red Blood Count 5.46 MIL/MM3 (4.00-5.30) Hemoglobin 16.9 GM/DL (11.6-15.3) Hematocrit 48.8 % (35.0-46.0) Blood Urea Nitrogen 23 MG/DL (7-18) Random Glucose 133 MG/DL (74-106) 131 MG/DL (74-106) Potassium Level 2.6 MEQ/L (3.5-5.1) 3.0 MEQ/L (3.5-5.1) Estimat Glomerular Filtration Rate 72 ML/MIN (>89) 78 ML/MIN (>89) 88 ML/MIN (>89) Platelet Count 143 TH/MM3 (150-450) Total Protein 5.7 GM/DL (6.4-8.2) Albumin 3.1 GM/DL (3.4-5.0) Calcium Level 8.0 MG/DL (8.5-10.1) Chloride Level 108 MEQ/L (98-107) Imaging Last Impressions Carotid Artery Ultrasound 08/08/17 0000 Signed Impressions: Service Date/Time: Tuesday, August 08, 2017 07:53 - CONCLUSION: 1. Mild right carotid plaque without significant flow-limiting stenosis. 2. No flow-limiting stenosis of the left carotid artery. 3. Antegrade flow in the vertebral arteries. Suhail Garcia MD Chest X-Ray 08/07/17 0524 Signed Impressions: Service Date/Time: Monday, August 07, 2017 05:33 - CONCLUSION: Trace left base atelectasis. Agustin Escoto MD Head CT 08/07/178 Signed Impressions: Service Date/Time: Monday, August 07, 2017 04:34 - CONCLUSION: Negative noncontrast head CT. Agustin Escoto MD Cervical Spine CT 08/07/178 Signed Impressions: Service Date/Time: Monday, August 07, 2017 04:34 - CONCLUSION: Acute, nondisplaced type II odontoid fracture. Agustin Escoto MD PE at Discharge awake and alert, oriented x 3 anicteric pupils equally reactive to light no facial asymmetry, tongue midline, good gag neck collar in place lungs no rales regular rhythm, no murmur abdomen soft, nontender extremities no edema grossly sensory no deficits, motor equal on all extremities BP supine 130/80 BP standing 130/72 Pt update on day of discharge awake and alert no complains non ortrhostatic ambulating around - steady gait Hospital Course 67 years old female S/P fall ? Syncopal episode with odontoid fracture -Neurosurgery ff - PT ff- ambulate - walker - get carotid US - negative and 2 d echo- will ff up - wet reading negative , Holter monitoring- holter shows occasional ectopic beats - check orthostatics vital signs- repeat negative - percocet prn for pain Hypokalemia- - corrected. TSH normal History of Hypertension History of "palpitations and rapid heart beat" - and was placed on Tenormin by her MD- advised her to take this - although this time- patient denies any feeling of palpitations - on med list- on Benicar and Altace- swears she is not taking GERD on PPI PT - increase activity History of polycythemia/Brest cancer on review of old records -recheck CBC. OP ff up UP and ambulating- PT- Out of bed tid CM consult for home health referral- Narcisa will start seeing her tomorrow DME- delievered to room reviewed med list - advised her to continue BB. DC Losartan and HCTZ FF up with PCP and Dr. Jauregui as OP Pt Condition on Discharge: Stable Discharge Disposition: Disch w/ Home Health Serv Discharge Time: <= 30 minutes Discharge Instructions DIET: Follow Instructions for: As Tolerated, No Restrictions Speech Therapy-Diet Recommends: Regular Activities you can perform: Weight Bearing as John Activities to Avoid: Strenuous Activity Follow up Referrals: Neurosurgery - 1 Week with Serjio Jauregui MD PCP Follow-up - 08/11/17 with [facility] New Orders: BASIC METABOLIC PROF - 08/12/17 New Medications: Walker with Front Wheels (Walker with Front Wheels) 1 Mis Mis EA .ROUTE DIRECTED for ambulation, #1 0 Refills Potassium Chloride Microencaps (Potassium Chloride Microencaps) 20 Meq Tab 20 MEQ PO DAILY for elect for 7 Days, #7 TAB Continued Medications: Allopurinol (Allopurinol) 300 Mg Tab 300 MG PO DAILY for Gout, #30 TAB 0 Refills Atorvastatin (Atorvastatin) 20 Mg Tab 20 MG PO DAILY for Cholesterol Management, #30 TAB 0 Refills Gabapentin (Gabapentin) 600 Mg Tab 600 MG PO HS, #30 TAB 0 Refills Latanoprost Opth Drops (Latanoprost Opth Drops) 0.005% Drops 1 DROP EACH EYE HS for Glaucoma, #2.5 ML 0 Refills Refrigerate until opened. Metoprolol Succinate ER 24 HR (Metoprolol Succinate ER 24 HR) 25 Mg Tab 25 MG PO DAILY, #30 TAB 0 Refills Discontinued Medications: Losartan-Hydrochlorothiazide (Losartan-Hydrochlorothiazide) 100-12.5 Mg Tab 1 TAB PO DAILY for Blood Pressure Management, #30 TAB 0 Refills Elicia Fontanez MD Aug 09, 2017 15:42
--- NOTE | 2017-08-09 15:46 | ECHRPT ---
Indication: syncope CONCLUSIONS The left ventricular systolic function is hyperdynamic with an estimated ejection fraction in the ra nge of 70- 75% Mild mitral valve regurgitation. No aortic valve regurgitation. There is mild tricuspid valve regurgitation. BP: 128 / 69 HR: Rhythm: MEASUREMENTS (Male / Female) Normal Values Technical Quality:Good 2D ECHO LV Diastolic Diameter PLAX 4.5 cm 4.2 - 5.9 / 3.9 - 5.3 cm LV Systolic Diameter PLAX 2.8 cm IVS Diastolic Thickness 1.0 cm 0.6 - 1.0 / 0.6 - 0.9 cm LVPW Diastolic Thickness 1.2 cm 0.6 - 1.0 / 0.6 - 0.9 cm LV Relative Wall Thickness 0.5 RV Internal Dim ED PLAX 3.3 cm M-MODE Aortic Root Diameter MM 3.3 cm LA Systolic Diameter MM 3.7 cm LA Ao Ratio MM 1.1 AV Cusp Separation MM 2.1 cm DOPPLER Mitral E Point Velocity 69.6 cm/s Mitral A Point Velocity 59.7 cm/s Mitral E to A Ratio 1.2 LV E' Lateral Velocity 11.8 cm/s Mitral E to LV E' Lateral Ratio 5.9 LV E' Septal Velocity 16.2 cm/s Mitral E to LV E' Septal Ratio 4.3 TR Peak Velocity 266.0 cm/s TR Peak Gradient 28.3 mmHg Right Atrial Pressure 10.0 mmHg Pulmonary Artery Systolic Pressu 38.3 mmHg Right Ventricular Systolic Press 38.3 mmHg FINDINGS LEFT VENTRICLE The left ventricular systolic function is hyperdynamic with an estimated ejection fraction in the ra nge of 70- 75% RIGHT VENTRICLE Normal right ventricular size and systolic function. LEFT ATRIUM The left atrial size is normal. RIGHT ATRIUM The right atrial size is normal. ATRIAL SEPTUM Normal atrial septal thickness without atrial level shunting by limited color doppler interrogation. AORTA The aortic root and proximal ascending aorta are normal in size on limited imaging. MITRAL VALVE Structurally normal mitral valve. Mild mitral valve regurgitation. AORTIC VALVE Trileaflet aortic valve. No aortic valve regurgitation. TRICUSPID VALVE Structurally normal tricuspid valve. There is mild tricuspid valve regurgitation. PULMONARY VALVE No pulmonary valve regurgitation or stenosis. VESSELS The inferior vena cava is normal in size. PERICARDIUM No pericardial effusion. Madison Parada MD, FACC (Electronically Signed) Final Date:09 August 2017 15:46
[2017-08-09 15:53] VITALS: BP 142/85; PULSE 69; RESP 17; TEMP 96.7; O2SAT 98
--- NOTE | 2017-08-09 21:26 | HM ---
Date Performed: 08/08/2017 Time Performed: 13:40:00 HOOKUP DATE: 08/08/17 01:40:00 PM Mon ANALYSIS START TIME: 08/08/2017 1:45:00 PM ANALYSIS END TIME: 08/09/2017 1:49:00 PM PATIENT AGE: 67 PATIENT HEIGHT PATIENT WEIGHT DRUG LIST PATIENT DIAGNOSIS: type 2 odontoid fracture TEST NARRATIVE: The patient's average heart rate was 70 BPM. No episodes of tachycardia wer e noted. No episodes of bradycardia were noted. No pauses exceeding 2.0 seconds were noted. 2 ventricular ectopics, which represented < 1% of the total beat count, were noted. The highest vent ricular ectopic frequency occurred from 10:00 PM to 11:00 PM Mon. During this time 1 VE(s) occurred. Ventricular ectopics were observed as 2 isolated beat(s) only. No couplets or runs were noted. 37 supraventricular ectopics, which represented < 1% of the total beat count, were noted. The highe st supraventricular ectopic frequency occurred from 05:00 PM to 06:00 PM Mon. During this time 10 SV E(s) occurred. No episodes of ST depression (defined as -1.0 mm or more) were noted in channel 1. No episodes of ST depression (defined as -1.0 mm or more) were noted in channel 2. No episodes of ST depression (defined as -1.0 mm or more) were noted in channel 3. NO DIARY ENTRIES TEST INTERPRETATION: Sinus rhythm Occasionsa PACs Signed by : Guillermo Espinoza
== END 2017-08-09 16:34 | disposition home health service (06) | DRG 552 ==
LOC: NEPE 03:43 → NEDA 05:31 → N06B 06:51
PROVIDERS: ADMIT Internal Medicine; ATTEND Internal Medicine
DX: S12.121A Other nondisplaced dens fracture, initial encounter for closed fracture (principal); D75.1 Secondary polycythemia; I10 Essential (primary) hypertension; G62.9 Polyneuropathy, unspecified; K21.9 Gastro-esophageal reflux disease without esophagitis; R55 Syncope and collapse; E87.6 Hypokalemia; E78.5 Hyperlipidemia, unspecified; M79.601 Pain in right arm; W06.XXXA Fall from bed, initial encounter; Z85.038 Personal history of other malignant neoplasm of large intestine; Z85.3 Personal history of malignant neoplasm of breast; Z88.6 Allergy status to analgesic agent
CPT/HCPCS: 70450; 71010; 72125; 80048; 80053; 80307; 84443; 85025; 85610; 85730; 93225; 93226; 93306; 93880; J2270; J2405; J2765; J3480; L0150; L0172